=== PATIENT | female | born 1980 | race Caucasian/White ===

== ENCOUNTER 2017-05-24 16:17 | Emergency (ER) | payer OTHER ==
[2017-05-24 16:50] VITALS: BP 128/86; PULSE 64; TEMP 97.9; O2SAT 99
[2017-05-24] MEDS ORDERED: KETOROLAC TROMETHAMINE 30 MG/ML SOL IM ONE (16:50)
[2017-05-24] MEDS ORDERED: CYCLOBENZAPRINE 10 MG TAB PO ONE (16:55)
[2017-05-24] MEDS ORDERED: KETOROLAC TROMETHAMINE 30 MG/ML SOL ONE (16:56)
[2017-05-24] MEDS ORDERED: CYCLOBENZAPRINE 10 MG TAB ONE (16:56)
[2017-05-24] MEDS ORDERED: TRAMADOL HYDROCHLORIDE 50 MG TAB PO ONE (18:03)
[2017-05-24] MEDS ORDERED: TRAMADOL HYDROCHLORIDE 50 MG TAB ONE (18:18)
== END 2017-05-24 18:56 | disposition home or self-care (01) | DRG 74 ==
LOC: ED 16:17
DX: M54.12 Radiculopathy, cervical region (principal)
CPT/HCPCS: 72125; 72128; 96372; 99284; J1885; L0130; A9270-GY

== ENCOUNTER 2017-07-26 15:00 | Emergency (ER) | payer OTHER ==
[2017-07-26 15:52] VITALS: BP 111/74; PULSE 89; RESP 18; TEMP 97.3; O2SAT 100
== END 2017-07-26 16:39 | disposition home or self-care (01) | DRG 538 ==
LOC: ED 15:00
DX: S76.912A Strain of unspecified muscles, fascia and tendons at thigh level, left thigh, initial encounter (principal)
CPT/HCPCS: 36415; 85378; 99282

== ENCOUNTER 2017-08-20 19:51 | Emergency (ER) | payer OTHER ==
[2017-08-20 20:12] VITALS: RESP 18; TEMP 98.5
[2017-08-20 20:16] VITALS: BP 91/53; PULSE 85; O2SAT 98
[2017-08-20] MEDS ORDERED: KETOROLAC TROMETHAMINE 30 MG/ML SOL ONE (20:24)
[2017-08-20] MEDS: KETOROLAC TROMETHAMINE 30 MG/ML SOL IM ONE (20:26)
== END 2017-08-20 20:39 | disposition home or self-care (01) | DRG 605 ==
LOC: ED 19:51
DX: S20.212A Contusion of left front wall of thorax, initial encounter (principal)
CPT/HCPCS: 96372; 99282; J1885

== ENCOUNTER 2017-11-18 15:17 | Inpatient (IN) | payer OTHER ==
[2017-11-18 14:37] LABS: AMYLASE 157 IU/L (25-115)
[2017-11-18] MEDS ORDERED: SODIUM CHLORIDE 0.9% 1000ML 1,000 ML IV ONE (15:25)
[2017-11-18] MEDS ORDERED: HYDROMORPHONE 1 MG/ML SYRINGE ONE ×2 (15:26→17:27)
[2017-11-18] MEDS ORDERED: HYDROMORPHONE 1 MG/ML SYRINGE IV ONE ×2 (15:26→17:27)
[2017-11-18] MEDS ORDERED: ONDANSETRON HCL 4 MG/2 ML SOL ONE (15:44)
[2017-11-18] MEDS: SODIUM CHLORIDE 0.9% FLUSH 10 ML SOL IV PRN ×3 (15:46→20:44)
[2017-11-18] MEDS: ONDANSETRON HCL 4 MG/2 ML SOL IV PRN (15:47)
[2017-11-18] MEDS ORDERED: LACTATED RINGERS 1,000 ML IV ONE (17:19)
[2017-11-18] MEDS ORDERED: SODIUM CHLORIDE 0.9% 100 ML 100 ML IV ONE (19:47)
[2017-11-18] MEDS: DIPHENHYDRAMINE 25 MG CAP PO PRN (20:44)
[2017-11-18] MEDS: HYDROMORPHONE 1 MG/ML SYRINGE IV PRN (20:44)
[2017-11-18] MEDS: SODIUM CHLORIDE 0.9% 1000ML 1,000 ML IV SCH (21:51)
[2017-11-19] MEDS: SODIUM CHLORIDE 0.9% FLUSH 10 ML SOL IV PRN ×2 (01:10→06:44)
[2017-11-19] MEDS: HYDROMORPHONE 1 MG/ML SYRINGE IV PRN ×2 (01:10→06:44)
[2017-11-19 07:22] VITALS: BP 100/64; PULSE 60; TEMP 98.4
[2017-11-19] MEDS: DIPHENHYDRAMINE 25 MG CAP PO PRN (07:22)
[2017-11-19] MEDS: SODIUM CHLORIDE 0.9% 1000ML 1,000 ML IV SCH (07:24)
[2017-11-19 07:25] LABS: ALBUMIN 2.9 gm/dl (3.4-5.0); BILIRUBIN,TOTAL 0.6 mg/dl (0.2-1.0); CALCIUM 7.8 mg/dl (8.5-10.1); CARBON DIOXIDE 27.3 mEq/L (21-32); CREATININE 0.64 mg/dl (0.60-1.00); POTASSIUM 3.8 mMol/L (3.5-5.1); TOTAL PROTEIN 5.3 gm/dl (6.4-8.2)
[2017-11-19 07:27] LABS: BASOPHILS % (AUTO) 2 % (0-3); EOSINOPHILS % (AUTO) 3 % (0-9); HEMATOCRIT 36 % (35-47); HEMOGLOBIN 12.2 gm/dl (12.0-15.5); LYMPHOCYTES % (AUTO) 48.5 % (10-50); MEAN CORPUSCULAR HEMOGLOBIN 33.4 pg (27.0-32.0); MEAN CORPUSCULAR HGB CONC 33.4 gm/dl (32.0-36.0); MONOCYTES % (AUTO) 7.9 % (0-12); NEUTROPHILS % (AUTO) 39.3 % (37-80)
[2017-11-19 07:30] LABS: MEAN CORPUSCULAR VOLUME 100 fL (81-99)
[2017-11-19] MEDS: ONDANSETRON HCL 4 MG/2 ML SOL IV PRN (07:32)
[2017-11-19 08:05] VITALS: O2SAT 99
[2017-11-19] MEDS ORDERED: ENOXAPARIN 40 MG SOL SC SCH (09:00)
[2017-11-19 09:56] VITALS: RESP 16
== END 2017-11-19 14:20 | disposition home or self-care (01) | DRG 440 ==
LOC: SUPCPDRO 15:17 → ED 15:17 → UNDOADMIN 17:42 → ACUTE CARE 17:42
PROVIDERS: ADMIT Family Medicine; ATTEND Family Medicine
DX: K85.90 Acute pancreatitis without necrosis or infection, unspecified (principal); R10.9 Unspecified abdominal pain; Z86.73 Personal history of transient ischemic attack (TIA), and cerebral infarction without residual deficits; Z86.711 Personal history of pulmonary embolism; R06.02 Shortness of breath
CPT/HCPCS: 36415; 74176; 80053; 82150; 85025; 94762; 96365; 96366; 96374; 96375; 99284; 99285; J1650; J2405; A9270-GY; J1170

== ENCOUNTER 2018-01-10 16:57 | Emergency (ER) | payer OTHER ==
[2018-01-10 17:10] VITALS: RESP 18; TEMP 96.7
[2018-01-10] MEDS ORDERED: ONDANSETRON 4 MG ODT BU ONE (17:23)
[2018-01-10] MEDS ORDERED: KETOROLAC TROMETHAMINE 30 MG/ML SOL IM ONE ×2 (17:24→18:27)
[2018-01-10] MEDS ORDERED: ONDANSETRON 4 MG ODT ONE (17:25)
[2018-01-10] MEDS ORDERED: KETOROLAC TROMETHAMINE 30 MG/ML SOL ONE (17:25)
[2018-01-10] MEDS ORDERED: APAP/HYDROCODONE 1 EACH TABLET PO ONE (18:27)
[2018-01-10 18:40] VITALS: BP 102/63; PULSE 68; O2SAT 99
== END 2018-01-10 18:28 | disposition home or self-care (01) | DRG 103 ==
LOC: ED 16:57
DX: G43.909 Migraine, unspecified, not intractable, without status migrainosus (principal)
CPT/HCPCS: 96372; 99282; 99284; J1885; A9270-GY

== ENCOUNTER 2018-01-17 17:07 | Emergency (ER) | payer OTHER ==
[2018-01-17 17:15] VITALS: TEMP 97.6
[2018-01-17] MEDS ORDERED: SOLUMEDROL 125 MG/2 ML 125 MG/2 ML PDS IM ONE (17:19)
[2018-01-17] MEDS ORDERED: ALBUTEROL NEB SOL 2.5MG/3ML 1 VIAL SOL NEB ONE (17:19)
[2018-01-17] MEDS ORDERED: SOLUMEDROL 125 MG/2 ML 125 MG/2 ML PDS ONE (17:29)
[2018-01-17] MEDS ORDERED: ALBUTEROL NEB SOL 2.5MG/3ML 1 VIAL SOL ONE (17:29)
[2018-01-17 21:12] VITALS: BP 109/73; PULSE 82; RESP 18; O2SAT 94
== END 2018-01-17 18:06 | disposition home or self-care (01) | DRG 153 ==
LOC: ED 17:07
DX: J30.9 Allergic rhinitis, unspecified (principal)
CPT/HCPCS: 96372; 99283; J2930; J7613

== ENCOUNTER 2018-05-09 19:22 | Emergency (ER) | payer OTHER ==
[2018-05-09] MEDS ORDERED: ONDANSETRON 4 MG ODT BU ONE (20:01)
[2018-05-09] MEDS ORDERED: KETOROLAC TROMETHAMINE 30 MG/ML SOL IM ONE (20:01)
[2018-05-09] MEDS ORDERED: TRAMADOL HYDROCHLORIDE 50 MG TAB PO ONE (20:03)
[2018-05-09] MEDS ORDERED: TRAMADOL HYDROCHLORIDE 50 MG TAB ONE (20:06)
[2018-05-09] MEDS ORDERED: KETOROLAC TROMETHAMINE 30 MG/ML SOL ONE (20:06)
[2018-05-09] MEDS ORDERED: ONDANSETRON 4 MG ODT ONE (20:06)
[2018-05-09 20:54] VITALS: BP 128/92; PULSE 82; RESP 20; TEMP 97.4; O2SAT 97
== END 2018-05-09 20:20 | disposition home or self-care (01) | DRG 556 ==
LOC: ED 19:22
DX: M25.561 Pain in right knee (principal)
CPT/HCPCS: 96372; 99282; 99283; J1885; A9270-GY

== ENCOUNTER 2018-07-14 14:06 | Emergency (ER) | payer OTHER ==
[2018-07-14 14:48] LABS: BASOPHILS % (AUTO) 1 % (0-3); EOSINOPHILS % (AUTO) 2 % (0-9); HEMATOCRIT 43 % (35-47); HEMOGLOBIN 14.4 gm/dl (12.0-15.5); LYMPHOCYTES % (AUTO) 36.2 % (10-50); MEAN CORPUSCULAR HEMOGLOBIN 32.6 pg (27.0-32.0); MEAN CORPUSCULAR HGB CONC 33.5 gm/dl (32.0-36.0); MEAN CORPUSCULAR VOLUME 97 fL (81-99); MONOCYTES % (AUTO) 5.9 % (0-12); NEUTROPHILS % (AUTO) 54.9 % (37-80)
[2018-07-14 14:49] LABS: CALCIUM 8.6 mg/dl (8.5-10.1); CREATININE 0.68 mg/dl (0.60-1.00)
[2018-07-14 15:06] VITALS: TEMP 98; O2SAT 100
[2018-07-14 16:43] VITALS: BP 99/60; PULSE 62; RESP 16
== END 2018-07-14 16:20 | disposition home or self-care (01) | DRG 556 ==
LOC: ED 14:06
DX: M79.662 Pain in left lower leg (principal)
CPT/HCPCS: 36415; 80048; 85025; 85378; 99282

== ENCOUNTER 2018-08-24 10:17 | Day surgery (SDC) | payer OTHER ==
[2018-08-24 10:42] VITALS: RESP 16
[2018-08-24] MEDS ORDERED: BUPIVACAINE HCL 0.25% MPF 30 ML SOL INFIL ONE (11:04)
[2018-08-24] MEDS ORDERED: TRIAMCINOLONE ACETONIDE 40 MG/ML SUS ONE (11:04)
[2018-08-24 11:44] VITALS: BP 105/72; PULSE 74; TEMP 98.4; O2SAT 97
== END 2018-08-24 11:56 | disposition home or self-care (01) | DRG 556 ==
LOC: SURG 10:17
PROVIDERS: ATTEND Nurse Anesthetist, Certified Registered
DX: M79.18 Myalgia, other site (principal)
CPT/HCPCS: J3300

== ENCOUNTER 2018-10-16 19:01 | Emergency (ER) | payer OTHER ==
[2018-10-16 20:04] VITALS: RESP 18; TEMP 97.2
[2018-10-16] MEDS ORDERED: FENTANYL 100MCG/2ML SOL IV ONE (20:35)
[2018-10-16] MEDS ORDERED: ONDANSETRON HCL 4 MG/2 ML SOL IV ONE (20:36)
[2018-10-16] MEDS ORDERED: FENTANYL 100MCG/2ML SOL ONE (20:39)
[2018-10-16] MEDS ORDERED: ONDANSETRON HCL 4 MG/2 ML SOL ONE (20:40)
[2018-10-16] MEDS ORDERED: SODIUM CHLORIDE 0.9% 1000ML 1,000 ML IV SCH (20:45)
[2018-10-16 20:54] LABS: BASOPHILS % (AUTO) 1 % (0-3); EOSINOPHILS % (AUTO) 12 % (0-9); HEMATOCRIT 45 % (35-47); HEMOGLOBIN 15.2 gm/dl (12.0-15.5); LYMPHOCYTES % (AUTO) 39.6 % (10-50); MEAN CORPUSCULAR HGB CONC 33.7 gm/dl (32.0-36.0); MEAN CORPUSCULAR VOLUME 98 fL (81-99); MONOCYTES % (AUTO) 8.1 % (0-12); NEUTROPHILS % (AUTO) 39.2 % (37-80)
[2018-10-16 21:00] LABS: CALCIUM 8.8 mg/dl (8.5-10.1); CARBON DIOXIDE 31.2 mEq/L (21-32); CREATININE 0.79 mg/dl (0.60-1.00)
[2018-10-16] MEDS ORDERED: KETOROLAC TROMETHAMINE 30 MG/ML SOL IV ONE (22:04)
[2018-10-16] MEDS ORDERED: KETOROLAC TROMETHAMINE 30 MG/ML SOL ONE (22:08)
[2018-10-16 23:04] VITALS: BP 100/65; PULSE 72; O2SAT 95
== END 2018-10-16 22:54 | disposition home or self-care (01) | DRG 103 ==
LOC: ED 19:01
DX: R51 Headache (principal)
CPT/HCPCS: 70450; 80048; 85025; 96365; 96374; 96375; 99283; 99285; J1885; J2405; J3010

== ENCOUNTER 2018-11-04 14:14 | Emergency (ER) | payer OTHER ==
[2018-11-04 14:37] VITALS: TEMP 97.5
[2018-11-04] MEDS ORDERED: SODIUM CHLORIDE 0.9% 1000ML 1,000 ML IV ONE (15:00)
[2018-11-04] MEDS ORDERED: KETOROLAC TROMETHAMINE 30 MG/ML SOL IV ONE (15:01)
[2018-11-04] MEDS ORDERED: KETOROLAC TROMETHAMINE 30 MG/ML SOL ONE (15:06)
[2018-11-04] MEDS ORDERED: SODIUM CHLORIDE 0.9% FLUSH 10 ML SOL IV PRN (15:24)
[2018-11-04 16:02] VITALS: BP 110/72; PULSE 81; RESP 18; O2SAT 100
== END 2018-11-04 16:12 | disposition home or self-care (01) | DRG 103 ==
LOC: ED 14:14
DX: G44.209 Tension-type headache, unspecified, not intractable (principal); M54.12 Radiculopathy, cervical region
CPT/HCPCS: 96365; 96374; 99282; 99284; J1885

== ENCOUNTER 2018-12-03 21:00 | Emergency (ER) | payer OTHER | END 2018-12-03 22:30 | disposition home or self-care (01) | LOC: ED 21:00 ==

== ENCOUNTER 2018-12-11 17:07 | Emergency (ER) | payer OTHER | END 2018-12-11 20:51 | disposition home or self-care (01) | LOC: ED 17:07 ==